=== PATIENT | female | born 1990 | race Caucasian/White ===

== ENCOUNTER 2020-09-14 10:53 | Inpatient (IN) | payer OTHER ==
[2020-09-14] MEDS ORDERED: hydrALAZINE 20 MG/ML VIAL SLOW IVP PRN ×3 (11:39→13:29)
[2020-09-14] MEDS ORDERED: Promethazine HCl 25 MG/ML VIAL IM PRN ×4 (11:39→13:44)
[2020-09-14] MEDS ORDERED: Diphenoxylate HCl/Atropine Tablet PO PRN ×2 (11:39)
[2020-09-14] MEDS ORDERED: Ondansetron PF 4 MG/2 ML Vial IVP PRN ×4 (11:39→13:44)
[2020-09-14] MEDS ORDERED: Lidocaine 1% (PF) 30 ML VIAL SC PRN (11:39)
[2020-09-14] MEDS ORDERED: Butorphanol Tartrate 1 MG/ML VIAL SLOW IVP PRN (11:39)
[2020-09-14] MEDS ORDERED: Methylergonovine 0.2 MG/ML VIAL IM PRN ×3 (11:39→13:29)
[2020-09-14] MEDS ORDERED: Ibuprofen 800 MG TAB PO PRN (11:39)
[2020-09-14] MEDS ORDERED: HYDROcodone/Acetaminophen 5/325 mg Tablet PO PRN ×6 (11:39→13:29)
[2020-09-14] MEDS ORDERED: Carboprost 250 MCG/ML AMP IM PRN (11:39)
[2020-09-14] MEDS ORDERED: Acetaminophen 500 MG TAB PO PRN (11:39)
[2020-09-14] MEDS ORDERED: NS / Oxytocin 40 units/1000ml 1,000 ML IV PRN (11:39)
[2020-09-14] MEDS ORDERED: Misoprostol 200 MCG TAB PR PRN (11:39)
[2020-09-14 11:43] VITALS: BMI 42.4
[2020-09-14] MEDS ORDERED: Lactated Ringer's 1,000 ML IV SCH (11:45)
[2020-09-14 11:58] LABS: Hemoglobin 11.6 g/dL (12.0-15.5); Mean Corpuscular HGB CONC 33.9 g/dL (32.0-36.0); Mean Corpuscular Hemoglobin 29.1 pg (27.0-33.0); Mean Corpuscular Volume 85.9 fl (81.6-98.3); Platelet Count 187 10x3/uL (150-450); RBC Distribution Width 13.4 % (11.5-14.5); Red Blood Cell (RBC) Count 3.98 10x6/uL (3.90-5.03); White Blood Cell (WBC) Count 8.7 10x3/uL (3.5-10.5)
[2020-09-14] MEDS ORDERED: Fentanyl 4 mcg/Bup 0.1% Cadd 100 ML ONE (12:09)
[2020-09-14 12:31] LABS: Hep B Surf Ag Non-Reactive S/CO (NonReactive); Syphilis Antibody Nonreactive (Nonreactive); Syphilis Antibody Index 0.02 S/CO (<1.00 Non-Reactive)
[2020-09-14 12:33] LABS: HBSAg Index 0.14 S/CO (0-0.99)
[2020-09-14] MEDS ORDERED: Zolpidem Tartrate 5 MG TAB PO PRN ×2 (13:22→13:29)
[2020-09-14] MEDS ORDERED: diphenhydrAMINE 25 MG CAP PO PRN ×2 (13:22→13:29)
[2020-09-14] MEDS ORDERED: Measles/Mumps/Rubella 10 MCG/0.5 ML VIAL SC ONE (13:22)
[2020-09-14] MEDS ORDERED: Benzocaine-Menthol 82.5 ML CAN TOP PRN ×2 (13:22→13:29)
[2020-09-14] MEDS ORDERED: Varicella virus, LIVE 0.5 ML VIAL SC ONE (13:22)
[2020-09-14] MEDS ORDERED: Lanolin Ointment 7 GM TUBE TOP PRN ×2 (13:22→13:29)
[2020-09-14] MEDS ORDERED: Bisacodyl 10 MG SUPP PR PRN ×2 (13:22→13:29)
[2020-09-14] MEDS ORDERED: Adacel (T-DAP) 0.5 ML SYRINGE IM ONE (13:22)
[2020-09-14] MEDS ORDERED: Preparation H Ointment 28 GM TUBE PR PRN ×2 (13:22→13:29)
[2020-09-14] MEDS ORDERED: Misoprostol 200 MCG TAB VAG PRN ×2 (13:22→13:29)
[2020-09-14] MEDS ORDERED: Milk Of Magnesia 30 ML UDCUP PO PRN ×2 (13:22→13:29)
[2020-09-14] MEDS ORDERED: NS / Oxytocin 40 units/1000ml 1,000 ML IV SCH ×2 (13:30)
[2020-09-14] MEDS ORDERED: Naloxone HCl 0.4 mg/ml Vial IVP PRN ×2 (13:44)
[2020-09-14] MEDS ORDERED: diphenhydrAMINE 50 MG/ML VIAL IVP PRN (13:44)
[2020-09-14] MEDS ORDERED: Acetaminophen 325 MG TAB PO PRN (13:44)
[2020-09-14] MEDS ORDERED: Lactated Ringer's 500 ML IV PRN (13:44)
[2020-09-14] MEDS ORDERED: Fentanyl 4 mcg/Bupivacaine 0.1% Cassette 100 ML EPIDURAL SCH (13:45)
[2020-09-14] MEDS ORDERED: Communication Order-Pharmacy FS SCH (13:45)
[2020-09-14] MEDS ORDERED: ePHEDrine Sulfate 50 MG/10 ML VIAL SLOW IVP PRN (13:53)
[2020-09-14] MEDS ORDERED: Ibuprofen 800 MG TAB PO SCH ×2 (14:00)
[2020-09-14] MEDS ORDERED: NS w/ Oxytocin 30 units 500 ML ONE ×2 (14:41→21:03)
[2020-09-14] MEDS ORDERED: Ferrous Sulfate 325 MG TAB PO SCH ×2 (17:00)
[2020-09-14] MEDS ORDERED: Docusate Calcium (SURFAK) 240 MG CAP PO SCH ×2 (21:00)
[2020-09-14] MEDS ORDERED: Misoprostol 200 MCG TAB ONE (21:13)
[2020-09-15] MEDS ORDERED: Milk Of Magnesia 30 ML UDCUP PO PRN (00:30)
[2020-09-15] MEDS ORDERED: hydrALAZINE 20 MG/ML VIAL SLOW IVP SCH (00:30)
[2020-09-15] MEDS ORDERED: NS / Oxytocin 40 units/1000ml 1,000 ML IV SCH (00:30)
[2020-09-15] MEDS ORDERED: Adacel (T-DAP) 0.5 ML SYRINGE IM SCH (00:30)
[2020-09-15] MEDS ORDERED: Bisacodyl 10 MG SUPP PR PRN (00:30)
[2020-09-15] MEDS: Ibuprofen 800 MG TAB PO SCH ×4 (01:04→21:10)
[2020-09-15 04:28] LABS: SARS-CoV-2 PCR by NAA Not Detected (NotDetected)
[2020-09-15] MEDS ORDERED: Ibuprofen 800 MG TAB PO SCH (06:00)
[2020-09-15 08:05] VITALS: TEMP 98.2
[2020-09-15] MEDS: Ferrous Sulfate 325 MG TAB PO SCH ×2 (08:29→17:08)
[2020-09-15] MEDS: Docusate Calcium (SURFAK) 240 MG CAP PO SCH ×2 (08:33→21:11)
[2020-09-15] MEDS ORDERED: Prenatal Vitamin 1 TAB PO SCH ×2 (09:00)
[2020-09-15] MEDS ORDERED: Preparation H Ointment 28 GM TUBE TOP PRN (16:09)
[2020-09-15] MEDS ORDERED: Witch Hazel-Glycerin 1 EACH JAR TOP PRN (16:10)
[2020-09-15] MEDS ORDERED: Bupivacaine PF 0.5% 30 ML VIAL ONE (19:19)
[2020-09-15 20:24] VITALS: BP 108/66
[2020-09-16] MEDS: Ibuprofen 800 MG TAB PO SCH (06:55)
[2020-09-16] MEDS: Docusate Calcium (SURFAK) 240 MG CAP PO SCH (08:35)
[2020-09-16] MEDS: Ferrous Sulfate 325 MG TAB PO SCH (08:35)
== END 2020-09-16 13:15 | disposition home or self-care (01) | DRG 807 ==
LOC: CSHLD 10:53 → CSHPP 22:50
PROVIDERS: ADMIT Obstetrics & Gynecology; ATTEND Obstetrics & Gynecology
PROC: 10E0XZZ Delivery of Products of Conception, External Approach (ICD-10-PCS; principal; 2020-09-14)
DX: O80 Encounter for full-term uncomplicated delivery (principal); Z37.0 Single live birth; Z3A.39 39 weeks gestation of pregnancy; Z20.822 Contact with and (suspected) exposure to COVID-19
CPT/HCPCS: 51702; 85027; 86780; 86850; 86900; 86901; 87340; 87635; J2405; J2590; S0020; U0003; U0005

== ENCOUNTER 2024-06-10 20:25 | Emergency (ER) | payer SELFPAY ==
[2024-06-10 21:45] LABS: CSF, Glucose 67 mg/dl (40-70); CSF, Protein 19.8 mg/dL (15-40)
[2024-06-10 21:47] LABS: Color Of CSF Supernatant COLORLESS (Colorless); Tube # 3; Unspun CSF Color COLORLESS (Colorless)
[2024-06-10 21:57] LABS: CSF RBC Count - Manual 1 /cu.mm (None Seen); CSF Source CSF; CSF WBC/NonHematics Count-Man 1 /cu.mm (0-5); Clarity Clear (Clear); Tube # 4
== END 2024-06-10 22:58 | disposition home or self-care (01) ==
LOC: CSHERS 20:25
DX: Z76.5 Malingerer [conscious simulation] (principal)
CPT/HCPCS: 82945; 84157; 87070; 87205; 89051; 99284